=== PATIENT | female | born 1985 | race Caucasian/White ===

== ENCOUNTER 2020-07-03 07:59 | Emergency (ER) | payer OTHER ==
[~2020-07-03 07:59] MED LIST: COLACE 100MG C100 MG PO
[2020-07-03 08:47] LABS: HEMOGLOBIN 12.4 gm/dl (12.3-15.3); RED BLOOD COUNT 4.39 M/UL (4.00-5.10); WHITE BLOOD COUNT 9.4 K/UL (4.5-11.0)
[2020-07-03 09:04] LABS: BUN/CREATININE RATIO 15 (0-10)
[2020-07-03] MEDS ORDERED: CEFDINIR300 MG PO (11:48)
[2020-07-03] MEDS ORDERED: ONDANSETRON ODT4 MG SL (11:48)
[2020-07-03] MEDS ORDERED: FLOMAX0.4 MG PO (11:48)
[2020-07-03] MEDS ORDERED: PERCOCET 5-3251 EACH PO (11:50)
[2020-07-03] MEDS ORDERED: K-DUR TAB 20 M20 MEQ PO (12:18)
[2020-09-29] MEDS ORDERED: HYDROXYZINE PO (15:13)
[2020-10-06] MEDS ORDERED: HYDROCODON-ACE1 EAC6 PO (09:12)
[2020-10-06] MEDS ORDERED: IBUPROFEN600 MG PO (09:12)
== END 2020-07-03 13:52 | disposition home or self-care (01) ==
LOC: ER1 07:59
PROVIDERS: Physician Assistant
DX: N13.2 Hydronephrosis with renal and ureteral calculous obstruction (principal); E87.6 Hypokalemia; N39.0 Urinary tract infection, site not specified; Z87.442 Personal history of urinary calculi; Z88.0 Allergy status to penicillin; Z79.899 Other long term (current) drug therapy; Z90.49 Acquired absence of other specified parts of digestive tract
CPT/HCPCS: 80053; 81001; 84703; 85025; 87077; 87086; 87186; 96365; 96375; 96376; 99284; J0696; J1170; J1885; J2270; J2405; J2550; J7030; J7120

== ENCOUNTER → 2020-10-06 | Day surgery (SDC) | payer OTHER ==
[~2020-10-06] MED LIST changes: +CEFDINIR300 MG PO; +FLOMAX0.4 MG PO; +HYDROCODON-ACE1 EAC6 PO; +HYDROXYZINE PO; +IBUPROFEN600 MG PO; +K-DUR TAB 20 M20 MEQ PO; +ONDANSETRON ODT4 MG SL; +PERCOCET 5-3251 EACH PO
[2020-10-06 08:03] LABS: HEMOGLOBIN 12.1 gm/dl (12.3-15.3); RED BLOOD COUNT 4.36 M/UL (4.00-5.10); WHITE BLOOD COUNT 6.5 K/UL (4.5-11.0)
== END | disposition home or self-care (01) ==
LOC: OR 06:35
PROVIDERS: Obstetrics & Gynecology
DX: N92.0 Excessive and frequent menstruation with regular cycle (principal); N94.6 Dysmenorrhea, unspecified; Z88.1 Allergy status to other antibiotic agents; F41.0 Panic disorder [episodic paroxysmal anxiety]; J32.9 Chronic sinusitis, unspecified; E66.9 Obesity, unspecified; J45.909 Unspecified asthma, uncomplicated; Z90.49 Acquired absence of other specified parts of digestive tract; K21.9 Gastro-esophageal reflux disease without esophagitis; Z88.8 Allergy status to other drugs, medicaments and biological substances
CPT/HCPCS: 36415; 81001; 84702; 85025; J1100; J1885; J2001; J2250; J2405; J2704; J2795; J3010; J7030; J7120

== ENCOUNTER → 2021-05-12 | Outpatient (CLI) | payer OTHER | LOC: KOH-I 08:40 | DX: M54.50 Low back pain, unspecified (principal) | CPT/HCPCS: 72100; 73522 ==